=== PATIENT | female | born 1940 | race Caucasian/White ===

== ENCOUNTER 2022-01-04 18:04 | Emergency (ER) | payer OTHER ==
[~2022-01-04] VITALS: Ht 167.6 cm; Wt 67.1 kg
== END 2022-01-04 22:45 | disposition home or self-care (01) ==
LOC: ER 18:04
DX: S51.002A Unspecified open wound of left elbow, initial encounter (principal); S70.02XA Contusion of left hip, initial encounter; W10.0XXA Fall (on)(from) escalator, initial encounter
CPT/HCPCS: 73030; 73080; 73502; 73700; 99283-25

== ENCOUNTER 2023-10-02 14:46 | Emergency (ER) | payer OTHER ==
[~2023-10-02] VITALS: Ht 167.6 cm; Wt 74.8 kg
[2023-10-02 15:14] VITALS: BP 174/96
== END 2023-10-02 16:40 | disposition home or self-care (01) ==
LOC: ER 14:46
DX: S09.90XA Unspecified injury of head, initial encounter (principal); M54.9 Dorsalgia, unspecified; W01.0XXA Fall on same level from slipping, tripping and stumbling without subsequent striking against object, initial encounter; Z88.5 Allergy status to narcotic agent
CPT/HCPCS: 70450; 72070; 72100; 72125; 99284-25

== ENCOUNTER 2024-05-20 00:33 | Emergency (ER) | payer OTHER ==
[~2024-05-20] VITALS: Ht 167.6 cm; Wt 71.2 kg
[~2024-05-20 00:33] MED LIST: ATEN50 PO; NEURONTIN300 MG PO; Simvastatin40 MG PO; [UNRECOGNIZED DRUG - OTHER]
[2024-05-20 00:35] VITALS: BP 161/82
[2024-05-20] MEDS ORDERED: Diphth,Pertuss(Acell),Tet Vac 0.5 ML VIAL IM ONE (01:00)
== END 2024-05-20 04:27 | disposition home or self-care (01) ==
LOC: ER 00:33
DX: S05.11XA Contusion of eyeball and orbital tissues, right eye, initial encounter (principal); S00.11XA Contusion of right eyelid and periocular area, initial encounter; S60.511A Abrasion of right hand, initial encounter; M25.561 Pain in right knee; R07.81 Pleurodynia; W18.30XA Fall on same level, unspecified, initial encounter
CPT/HCPCS: 70450; 71045; 73130; 73562-RT; 90715